=== PATIENT | male | born 1990 | race African-American/Black ===

== ENCOUNTER 2021-02-11 19:57 | Emergency (ER) | payer MEDICAID ==
[~2021-02-11] VITALS: Ht 177.8 cm; Wt 70.0 kg
[2021-02-11 19:59] VITALS: BP 133/90
[2021-02-11] MEDS ORDERED: LIDOCAINE HCL 1% 20ML VIAL (Pyxis) INJ INFIL ONE (22:30)
[2021-02-11] MEDS ORDERED: IBUP-2029 MT (22:46)
== END 2021-02-12 00:32 | disposition home or self-care (01) ==
LOC: ER 19:57
DX: S90.212A Contusion of left great toe with damage to nail, initial encounter (principal); W22.8XXA Striking against or struck by other objects, initial encounter; Y93.89 Activity, other specified; Y92.811 Bus as the place of occurrence of the external cause; Y99.8 Other external cause status
CPT/HCPCS: 11740; 73630; 99283; 99284